=== PATIENT | male | born 1955 | race Caucasian/White ===

== ENCOUNTER 2017-08-15 17:08 | Emergency (ER) | payer MEDICARE ==
[~2017-08-15] VITALS: Ht 182.9 cm; Wt 68.0 kg
[~2017-08-15 17:08] MED LIST: CEPH500C PO; ERGO400C PO; HYDR-3583 PO; MAGNESIUM PO; METO50TA7; MULT-608 PO; POTA99TA7 PO; SULF1TAB38 PO
--- OUTSIDE RECORDS SUMMARY | 2017-08-15 17:13 | XMS REPORT | Clinical Summary ---
Author Author [facility] Address Unknown Phone Unavailable Care Team Providers Care Die Developer Name Role Phone PCP Unavailable Source Comments Some departments are not documenting in the electronic medical record. If you do not see the information that you expected, contact Release of Information in the Health Information Management department at [phone] for further assistance in locating additional records.[facility] Allergies No Known Allergies Current Medications Prescription Sig. Disp. Refills Start End Date Status Date fexofenadine-pseudoephedr Take 1 Tab by mouth twice Active ine (SATISH-D 12 HOUR) daily. 60-120 mg tablet acetaminophen (TYLENOL) Take 500 mg by mouth Active 500 mg tablet every 6 hours as needed for Pain. amLODIPine (NORVASC) 5 mg Take 5 mg by mouth daily. Active tablet trimethoprim/sulfamethoxa Take 1 Tab by mouth twice 60 Tab 0 12/11/19 Active zole (BACTRIM DS) 160/800 daily. 16 mg tablet Active Problems Problem Noted Date Malignant neoplasm of urinary bladder (HCC) 07/31/2015 Urethral bleeding 07/31/2015 Chronic intractable headache 07/31/2015 Family History Medical History Relation Name Comments Cancer Father Arthritis-osteo Mother Arthritis-rheumatoid Mother Diabetes Mother Relation Name Status Comments Father Mother Social History Tobacco Use Types Packs/Day Years Used Date Current Every Day Smoker 2 30.0 Tobacco Cessation: Ready to Quit: Yes Alcohol Use Drinks/Week oz/Week Comments No Sex Assigned at Date Recorded Not on file Last Filed Vital Signs Vital Sign Reading Time Taken Blood Pressure 155/97 12/11/2015 11:27 AM CDT Pulse 90 12/11/2015 11:27 AM CDT Temperature 36.3 C (97.3 F) 12/11/2015 11:27 AM CDT Respiratory Rate 18 12/11/2015 11:27 AM CDT Oxygen Saturation 100% 10/26/2007 1:15 PM CDT Inhaled Oxygen - - Concentration Weight 70.1 kg (154 lb 9.6 oz) 12/11/2015 11:27 AM CDT Height 179.1 cm (5' 10.51") 12/11/2015 11:27 AM CDT Body Mass Index 21.86 12/11/2015 11:27 AM CDT Plan of Treatment Health Maintenance Due Date Last Done Comments HEPATITIS C SCREENING 1957 PHYSICAL (COMPREHENSIVE) 1964 EXAM PERTUSSIS VACCINE 1968 TETANUS VACCINE 1974 COLORECTAL CANCER 10/18/2007 SCREENING INFLUENZA VACCINE 03/10/2017 Results Not on filefrom Last 3 Months
--- OUTSIDE RECORDS SUMMARY | 2017-08-15 17:13 | XMS REPORT | Continuity of Care Document ---
Author Author [facility] Organization [facility] Address Unknown Phone Unavailable Allergies Active Description Code Type Severity Reaction Onset Reported/Identified Relationship to Patient Clinical Status Yes NKANo Known Allergies NKA Miscellaneous Allergy Unknown N/A 02/17/2007 Yes No Known Drug Allergies [id number] Drug Allergy Unknown N/A 03/06/2008 Medications There is no data. Problems Date Dx Coded Attending Type Code Diagnosis Diagnosed By 12/06/2014 ROXANNE ROYAL DO M Ot 188.9 12/06/2014 ALLEN ROYAL DOE M Ot 276.2 12/06/2014 LELE COLE ROXANNE M Ot 477.0 12/06/2014 LELE COLE ROXANNE M Ot 585.4 01/06/2015 LELE DO, ROXANNE M Ot 188.9 01/06/2015 [facility] DO, ROXANNE M Ot 276.2 01/06/2015 LELE DO, ROXANNE M Ot 477.0 01/06/2015 LELE DO ROXANNE M Ot 585.4 08/02/2015 LELE DO, ROXANNE M Ot C67.9 08/02/2015 [facility] DO ROXANNE M Ot E87.2 08/02/2015 [facility] DO ROXANNE M Ot I12.9 08/02/2015 LELE COLE ROXANNE M Ot N18.3 08/30/2015 MONY DUNCAN MD Ot C67.9 08/30/2015 PERLA MACK, MONY Flores Ot N36.8 08/30/2015 MONY DUNCAN MD Ot R51 12/19/2016 Ot 564.00 UNSPEC CONSTIPATION 12/19/2016 Ot 789.00 ABDOMINAL PAIN, UNSPECIFIED SITE Procedures There is no data. Results There is no data. Encounters ACCT No. Visit Date/Time Discharge Status Pt. Type Provider Facility Loc./Unit Complaint [id number] 08/07/2015 14:48:00 08/07/2015 23:59:59 CLS Outpatient MONY DUNCAN MD [facility] RAD [id number] 07/09/2015 14:40:00 07/09/2015 23:59:59 CLS Outpatient ROXANNE ROYAL DO [facility] LAB [id number] 11/30/2014 13:14:00 11/30/2014 23:59:59 CLS Outpatient ROXANNE ROYAL DO [facility] LAB [id number] 05/24/2014 14:28:00 05/24/2014 23:59:59 CLS Outpatient [id number] 11/29/2013 14:24:00 11/29/2013 23:59:59 CLS Outpatient [id number] 02/11/2013 11:42:00 02/11/2013 23:59:59 CLS Outpatient [id number] 02/11/2013 12:18:00 02/11/2013 14:40:00 DIS Emergency [id number] 11/06/2011 08:04:00 Document Registration
[2017-08-15 17:36] LABS: BASOPHILS % (AUTO) 0 % (0-10); EOSINOPHILS % (AUTO) 0 % (0-10); HEMATOCRIT 39 % (40-54); HEMOGLOBIN 14.3 G/DL (13.3-17.7); LYMPHOCYTES # (AUTO) 0.7 X 10^3 (1.0-4.0); LYMPHOCYTES % (AUTO) 6 % (12-44); MEAN CORPUSCULAR HEMOGLOBIN 32 PG (25-34); MEAN CORPUSCULAR HGB CONC 37 G/DL (32-36); MEAN CORPUSCULAR VOLUME 86 FL (80-99); MEAN PLATELET VOLUME 8.7 FL (7.4-10.4); MONOCYTES # (AUTO) 1.4 X 10^3 (0.0-1.0); MONOCYTES % (AUTO) 12 % (0-12); NEUTROPHILS # (AUTO) 9.7 X 10^3 (1.8-7.8); NEUTROPHILS % (AUTO) 82 % (42-75); PLATELET COUNT 247 10^3/uL (130-400); RED BLOOD COUNT 4.46 10^6/uL (4.35-5.85); RED CELL DISTRIBUTION WIDTH 14.1 % (10.0-14.5); WHITE BLOOD COUNT 11.8 10^3/uL (4.3-11.0)
--- NOTE | 2017-08-15 17:48 | Diagnostic Imaging Report ---
EXAMINATION: Single view of the chest. INDICATION: Shortness of breath. COMPARISON: CT of the chest from 02/11/2013. FINDINGS: There are advanced background features of severe emphysema. The lungs are hyperinflated. There is some persistent linear regions of density at the right lung base which were also present on the 2013 examination and are most suggestive of scarring. This has also been present dating back to a prior 2011 CT abdomen. Lungs otherwise demonstrate no new opacities. There is no evidence to suggest failure. The pulmonary arteries are mildly prominent which may reflect pulmonary arterial hypertension. There is no significant effusion. There is no pneumothorax. IMPRESSION: Linear densities at right lung base are favored to be reflective of long-standing scar. There are severe features of background emphysema. Pulmonary artery is prominent suggesting pulmonary arterial hypertension but there is no radiographic evidence of failure or of an acute cardiopulmonary process. Dictated by: Dictated on workstation # [id number]
[2017-08-15 17:58] LABS: ALANINE AMINOTRANSFERASE 88 U/L (0-55); ALKALINE PHOSPHATASE 115 U/L (40-136); BILIRUBIN,TOTAL 0.3 MG/DL (0.1-1.0); BUN/CREATININE RATIO 21; CALCIUM 9.1 MG/DL (8.5-10.1); CARBON DIOXIDE 10 MMOL/L (21-32); CHLORIDE 101 MMOL/L (98-107); CREATININE SERUM 3.28 MG/DL (0.60-1.30); GFR ESTIMATED 19; GLUCOSE 133 MG/DL (70-105); POTASSIUM 4.4 MMOL/L (3.6-5.0); SODIUM 126 MMOL/L (135-145); TOTAL PROTEIN 7.8 GM/DL (6.4-8.2)
[2017-08-15] MEDS ORDERED: methylPREDNISolone 125 MG (Solu-MEDROL) VIAL IV STA (18:16)
[2017-08-15] MEDS ORDERED: NS IV 1000 ML 1,000 ML IV ONE (18:16)
[2017-08-15 18:41] LABS: INR 1.1 (0.8-1.4); PROTHROMBIN TIME PATIENT 13.9 SEC (12.2-14.7)
--- NOTE | 2017-08-15 18:43 | ED Respiratory ---
General Chief Complaint: Respiratory Problems Stated Complaint: SOA Nursing Triage Note: pt reports soa x 2 weeks with cough/congestion. Source: patient History of Present Illness Time seen by provider: 18:00 Initial Comments C/O SHORTNESS OF BREATH X 1-2 WEEKS, GRADUALLY GETTING WORSE C/O MINIMALLY PRODUCTIVE COUGH--SPUTUM UNKNOWN COLOR CHEST HURTS TO COUGH OR MOVE--LEFT > RIGHT STATES "MY LUNGS HURT WHEN I CAN'T BREATHE" NO FEVER/SWEATS/CHILLS NO SWELLING IN LEGS/ FEET OR PAIN IN CALVES OCCASIONAL PALPITATIONS--HEART BEATING FAST OCCASIONAL NAUSEA WHEN HE IS COUGHING HARD. NO VOMITING HAS HAD DECREASED APPETITE, BUT HAS BEEN DRINKING FLUIDS HAS NOT SOUGHT CARE UNTIL TODAY SYMPTOMS NO DIFFERENT TODAY HAS NOT TAKEN ANYTHING FOR SYMPTOMS PT CONTINUES TO SMOKE 2 PPD DENIES HISTORY OF RESPIRATORY PROBLEMS OR DX OF COPD/EMPHYSEMA/ASTHMA HAS NOT BEEN PRESCRIBED INHALERS/ NEBULIZERS, ETC HAS NEVER SEEN HAIR TINTER FOR ANY REASON PT STATES HE DOES NOT TAKE MEDICATION FOR ANYTHING PCP: DR SANTOS Allergies and Home Medications Allergies Coded Allergies: No Known Allergies (Verified Allergy, Unknown, 02/17/07) No Known Drug Allergies (Verified Allergy, Unknown, 03/06/08) Home Medications Albuterol Sulfate 1 Puff Puff, 2 PUFF IH Q4H, #1 USE WITH SPACER AT ALL TIMES Prescribed by: HARPER COVARRUBIAS on 08/15/171942 Benzonatate 100 Mg Capsule, 1-2 TAB PO TID, #30 Prescribed by: HARPER COVARRUBIAS on 08/15/171942 Cefdinir 300 Mg Capsule, 300 MG PO BID, #20 Prescribed by: HARPER COVARRUBIAS on 08/15/171942 Guaifenesin/Dextromethorphan 1 Each Tbmp.12hr, 1 EACH PO BID for 10 Days, #20 Prescribed by: HARPER COVARRUBIAS on 08/15/171942 Methylprednisolone 4 Mg Tab.ds.pk, 4 MG PO UD, #1 Prescribed by: HARPER COVARRUBIAS on 08/15/171942 Constitutional: see HPI, No chills, No diaphoresis, No dizziness, No fever, malaise, weakness, other (DECREASED APPETITE) EENTM: no symptoms reported Respiratory: see HPI, cough, No hemoptysis, No orthopnea, phlegm, short of breath, No wheezing Cardiovascular: see HPI, chest pain, No edema, palpitations, No syncope, No vascular heart diseas Gastrointestinal: see HPI, No abdominal pain, No loss of appetite, nausea, No vomiting Genitourinary: no symptoms reported (PT HAS UROSTOMY) Musculoskeletal: no symptoms reported, No back pain Skin: no symptoms reported Psychiatric/Neurological: No Symptoms Reported, Denies Headache Hematologic/Lymphatic: No Symptoms Reported Immunological/Allergic: no symptoms reported Past Rbuzyrf-Cnbwch-Eizhep Hx Patient Social History Alcohol Use: Occasionally Uses (HISTORY OF MODERATE/HEAVY USE, NOW ONLY "OCCASIONALLY" DRINKS) Recreational Drug Use: No Smoking Status: Current Everyday Smoker (2 PPD) Type Used: Cigarettes Recent Foreign Travel: No Contact w/Someone Who Travel: No Recent Infectious Disease Expo: No Recent Hopitalizations: Yes Physical Abuse: No Sexual Abuse: No Mistreated: No Fear: No Immunizations Up To Date Date of Pneumonia Vaccine: Feb 07, 2010 Surgeries History of Surgeries: Yes ( BASAL CELL CA REMOVED; RIGHT CHEST WALL RESECTION FOR OSTEOMYELITIS; 8 BLADDER SURGERIES FOR CANCER; MULTIPLE COLON SURGERIES/ RESECTIONS/ENTEROSTOMIES; COLOSTOMIES AND TAKEDOWNS; CURRENTLY WITH UROSTOMY; RIGHT NEPHROSTOMY TUBE FOR OBSTRUCTION--REMOVED. LEFT NEPHRECTOMY --"DAMAGED" ) Surgeries: Abdominal, Bladder Surgery, Bowel Surgery, Gallbladder, Nephrectomy , Prostatectomy, Renal, Urinary Diversion Respiratory History of Respiratory Disorde: Yes (ARDS ) Cardiovascular History of Cardiac Disorders: Yes Neurological History of Neurological Disord: No Reproductive System Sexually Transmitted Disease: No Genitourinary History of Genitourinary Disor: Yes (CHRONIC RENAL FAILURE/INSUFFICIENCY--NO DIALYSIS; BLADDER AND PROSTATE CANCER; HAS NOT SEEN DEGREASER IN YEARS. DOES NOT KNOW HIS BASELINE CREATININE LEVEL; LEFT NEPHRECTOMY; RIGHT UROSTOMY / REMOVAL FOR OBSTRUCTION) Genitourinary Disorders: Renal Failure Gastrointestinal History of Gastrointestinal Di: Yes (EXTENSIVE ABDOMINAL SURGERIES--FOR CA, BOWEL RESECTIONS, OSTOMIES, TAKEDOWNS--CURRENTLY ONLY WITH UROSTOMY OF ; RADIATION COLITIS) Gastrointestinal Disorders: Colitis, Obstructive Bowel Musculoskeletal History of Musculoskeletal Dis: Yes (OSTEOMYELITIS) Endocrine History of Endocrine Disorders: No HEENT History of HEENT Disorders: No Cancer History of Cancer: Yes (S/O SURGERY, CHEMO, RADIATION) Cancer: Bladder, Prostate, Skin Did You Recieve Any Treatments: Yes (MULTIPLE SURGERIES ON BLADDER AND PROSTATE --PROSTATECTOMY/CYSTECTOMY/UROSTOMY, PLUS CHEMO AND RADIATION-COMPLETED TREATMENT 15 YEARS AGO, PER PT ON 08/15/17-HAS NOT SEEN ONCOLOGIST IN YEARS; SKIN CANCER REMOVED WITH SURGICAL EXCISION) Type of Tx Receive: Chemotherapy, Radiation, Surgical Intervention Psychosocial History of Psychiatric Problem: No Suicide Risk Score: 0 Integumentary History of Skin or Integumenta: Yes (OSTEOMYELITIS OF RIBS/CHEST WALL, SKIN CANCER) Blood Transfusions History of Blood Disorders: No Physical Exam Vital Signs Vital Sign - Last 12Hours 08/15/17 08/15/17 17:34 18:00 Temp 97.6 Pulse 108 Resp 20 B/P (MAP) 124/72 (89) Pulse Ox 93 O2 Delivery Room Air Capillary Refill : Less Than 3 Seconds General Appearance: WD/WN, no apparent distress HEENT: PERRL/EOMI Neck: normal inspection Respiratory: normal breath sounds, no respiratory distress, no accessory muscle use Cardiovascular: normal peripheral pulses, regular rate, rhythm, no edema, no JVD, no murmur Gastrointestinal: normal bowel sounds, non tender, soft Extremities: normal inspection, no pedal edema, no calf tenderness, normal capillary refill Neurologic/Psychiatric: campus wellness coordinator II-XII nml as tested, no motor/sensory deficits, alert, oriented x 3, other (FLAT AFFECT) Skin: normal color, warm/dry Focused Exam Evaluation Lactate Level Laboratory Tests 08/15/17 17:25: Lactic Acid Level 0.99 Lactic Acid Level Laboratory Tests Test 08/15/17 17:25 Lactic Acid Level 0.99 MMOL/L (0.50-2.00) Progress/Results/Core Measures Suspected Sepsis Recent Fever Within 48 Hours: No Infection Criteria Present: Suspected New Infection New/Unexplained Altered Menta: No Sepsis Screen: No Definite Risk Sepsis Diagnosis: SIRS Temperature:97.6 Pulse: 108 Respiratory Rate: 20 Laboratory Tests 08/15/17 17:25: White Blood Count 11.8H Blood Pressure 124 /72 Mean: 89 Laboratory Tests 08/15/17 17:25: Lactic Acid Level 0.99 Laboratory Tests 08/15/17 17:25: Creatinine 3.28H, INR Comment 1.1, Platelet Count 247, Total Bilirubin 0.3 Results/Orders Lab Results Laboratory Tests Test 08/15/17 17:25 1/6/18 19:13 Range/Units White Blood Count 11.8 H 4.3-11.0 10^3/uL Red Blood Count 4.46 4.35-5.85 10^6/uL Hemoglobin 14.3 13.3-17.7 G/DL Hematocrit 39 L 40-54 % Mean Corpuscular Volume 86 80-99 FL Mean Corpuscular Hemoglobin 32 25-34 PG Mean Corpuscular Hemoglobin Concent 37 H 32-36 G/DL Red Cell Distribution Width 14.1 10.0-14.5 % Platelet Count 247 130-400 10^3/uL Mean Platelet Volume 8.7 7.4-10.4 FL Neutrophils (%) (Auto) 82 H 42-75 % Lymphocytes (%) (Auto) 6 L 12-44 % Monocytes (%) (Auto) 12 0-12 % Eosinophils (%) (Auto) 0 0-10 % Basophils (%) (Auto) 0 0-10 % Neutrophils # (Auto) 9.7 H 1.8-7.8 X 10^3 Lymphocytes # (Auto) 0.7 L 1.0-4.0 X 10^3 Monocytes # (Auto) 1.4 H 0.0-1.0 X 10^3 Eosinophils # (Auto) 0.0 0.0-0.3 10^3/uL Basophils # (Auto) 0.0 0.0-0.1 10^3/uL Prothrombin Time 13.9 12.2-14.7 SEC INR Comment 1.1 0.8-1.4 Activated Partial Thromboplast Time 36 H 24-35 SEC Sodium Level 126 L 135-145 MMOL/L Potassium Level 4.4 3.6-5.0 MMOL/L Chloride Level 101 98-107 MMOL/L Carbon Dioxide Level 10 L 21-32 MMOL/L Anion Gap 15 H 5-14 MMOL/L Blood Urea Nitrogen 68 H 7-18 MG/DL Creatinine 3.28 H 0.60-1.30 MG/DL Estimat Glomerular Filtration Rate 19 BUN/Creatinine Ratio 21 Glucose Level 133 H 70-105 MG/DL Lactic Acid Level 0.99 0.50-2.00 MMOL/L Calcium Level 9.1 8.5-10.1 MG/DL Magnesium Level 1.5 L 1.8-2.4 MG/DL Total Bilirubin 0.3 0.1-1.0 MG/DL Aspartate Amino Transf (AST/SGOT) 49 H 5-34 U/L Alanine Aminotransferase (ALT/SGPT) 88 H 0-55 U/L Alkaline Phosphatase 115 40-136 U/L Troponin I < 0.30 <0.30 NG/ML B-Type Natriuretic Peptide < 10.0 <100.0 PG/ML Total Protein 7.8 6.4-8.2 GM/DL Albumin 4.0 3.2-4.5 GM/DL Urine Color YELLOW Urine Clarity CLEAR Urine pH 8 5-9 Urine Specific [place] 1.010 L 1.016-1.022 Urine Protein 3+ H NEGATIVE Urine Glucose (UA) NEGATIVE NEGATIVE Urine Ketones NEGATIVE NEGATIVE Urine Nitrite POSITIVE H NEGATIVE Urine Bilirubin NEGATIVE NEGATIVE Urine Urobilinogen NORMAL NORMAL MG/DL Urine Leukocyte Esterase 3+ H NEGATIVE Urine RBC (Auto) 4+ H NEGATIVE Urine RBC 2-5 H /HPF Urine WBC 10-25 H /HPF Urine Crystals PRESENT H /LPF Urine Triple Phosphate Crystals MODERATE H /LPF Urine Bacteria FEW H /HPF Urine Casts NONE /LPF Urine Mucus NEGATIVE /LPF Urine Culture Indicated YES Micro Results Microbiology 08/15/17 Influenza Types A,B Antigen (MIGUEL) - Final, Complete My Orders Orders - HARPER COVARRUBIAS DO BNP (08/15/17 18:13) Lactic Acid Analyzer (08/15/17 18:13) Magnesium (08/15/17 18:13) Protime With Inr (08/15/17 18:13) Partial Thromboplastin Time (08/15/17 18:13) Blood Culture (08/15/17 18:13) Influenza A And B Antigens (08/15/17 18:13) Saline Lock/Iv-Start (08/15/17 18:16) Ns Iv 1000 Ml (Sodium Chloride 0.9%) (08/15/17 18:16) Methylprednisolone Sod Succ (Solu-Medrol (08/15/17 18:16) Ct Chest Wo (08/15/17 18:16) Albuterol/Ipra Inhalation Soln (Duoneb I (08/15/17 19:15) Dexamethasone Injection (Decadron Inject (08/15/17 19:15) Rt Request For Service (08/15/17 19:07) Ceftriaxone Injection (Rocephin Injectio (08/15/17 19:15) Svn Sm Volume Nebulizer Rt-Rfs (08/15/17 19:07) Magnesium Oxide Tablet (Mag Ox Tablet) (08/15/17 19:45) Medications Given in ED Current Medications Medications Dose Ordered Sig/Kp Route Start Time Stop Time Status Last Admin Dose Admin Albuterol/ Ipratropium 3 ml ONCE ONCE INH 08/15/17 19:15 08/15/17 19:16 DC 08/15/17 19:48 3 ML Ceftriaxone Sodium 1000 mg/ Sodium Chloride 50 ml @ 100 mls/hr ONCE ONCE IV 08/15/17 19:15 08/15/17 19:44 DC 08/15/17 19:41 100 MLS/HR Dexamethasone Sodium Phosphate 20 mg ONCE ONCE IH 08/15/17 19:15 08/15/17 19:16 DC 08/15/17 19:48 20 MG Magnesium Oxide 800 mg ONCE ONCE PO 08/15/17 19:45 08/15/17 19:46 DC 08/15/17 19:42 800 MG Sodium Chloride 1,000 ml @ 0 mls/hr Q0M ONCE IV 08/15/17 18:16 08/15/17 18:17 DC 08/15/17 18:22 0 MLS/HR Vital Signs/I&O Vital Sign - Last 12Hours 08/15/17 08/15/17 08/15/17 08/15/17 17:34 18:00 18:30 19:00 Temp 97.6 Pulse 108 94 96 95 Resp 20 18 18 18 B/P (MAP) 124/72 (89) 103/74 114/72 123/85 Pulse Ox 93 97 97 97 O2 Delivery Room Air Room Air Room Air 08/15/17 08/15/17 08/15/17 08/15/17 19:30 19:49 20:00 20:10 Pulse 91 90 92 Resp 18 18 18 B/P (MAP) 116/79 116/77 Pulse Ox 96 100 97 97 O2 Delivery Room Air Room Air Room Air Room Air Intake and Output 08/16/17 00:00 Intake Total 1050 ml Balance 1050 ml Capillary Refill : Less Than 3 Seconds Blood Pressure Mean: 89 Progress Note : Progress Note STRONGLY ADVISED THAT PT BE ADMITTED FOR FURTHER TREATMENT AND EVALUATION AND HE ADAMANTLY AND REPEATEDLY REFUSES, STATING HE "HAS HIS DOGS TO TAKE CARE OF" --DAUGHTER IS HERE WITH PT, BUT DOES NOT ENCOURAGE PT TO STAY, VOLUNTEER TO TAKE CARE OF HIS DOGS, ETC. AMA PAPERS SIGNED STRONGLY ADVISED PT TO RETURN IF SYMPTOMS WORSENED AND TO FOLLOW UP WITH HIS DR ON THURSDAY FOR FURTHER CARE NO COUGH OR EVIDENCE OF DYSPNEA AT ANY TIME DURING ER STAY ECG Initial ECG Impression Time: 17:19 Initial ECG Rate: 101 Initial ECG Rhythm: Normal Sinus Initial ECG Comparisson: No Previous ECG Available Diagnostic Imaging Comments CXR--LIKELY SCARRING IN RLL, EMPHYSEMA, NO ACUTE PROCESS--PER RADIOLOGIST REPORT @ 1800 CT CHEST--NO ACUTE PROCESS, SCARRING IN RLL, BULLOUS EMPHYSEMA, STABLE/ UNCHANGED NODULE IN LLL, NO ACUTE PROCESS, PER RADIOLOGIST REPORT @ 1900 Reviewed: Reviewed by Me Departure Impression Impression: Primary Impression: Bronchitis Additional Impressions: Emphysema lung Very heavy cigarette smoker (40 or more per day) UTI (urinary tract infection) HX OF BLADDER AND PROSTATE CANCER Hypomagnesemia Acute on chronic renal failure Dehydration Hyponatremia Disposition: AGAINST MEDICAL ADVICE Condition: Against Medical Advice Departure-Patient Inst. Referrals: PANFILO SANTOS DO (PCP/Family) Primary Care Physician Patient Instructions: Acute Bronchitis, Adult (DC), Acute Kidney Failure (DC), COPD Including Emphysema (DC), Chronic Kidney Disease (DC), Hyponatremia (DC), Low Magnesium Level (DC), Quitting Smoking for Older Adults, SMOKING CESSATION, Smoking: Not Just Harmful to Your Lungs and Heart, Urinary Tract Infection, Adult (DC) Add. Discharge Instructions: INCREASE YOUR FLUID INTAKE NO SMOKING FOLLOW UP WITH DR. SANTOS ON THURSDAY FOR FURTHER CARE RETURN TO ER IF SYMPTOMS WORSEN All discharge instructions reviewed with patient and/or family. Voiced understanding. Scripts Guaifenesin/Dextromethorphan (Mucinex Dm ER 1,200-60 mg Tab) 1 Each Tbmp.12hr 1 EACH PO BID for 10 Days, #20 EA Prov: HARPER COVARRUBIAS DO 08/15/17 Benzonatate (Tessalon Perle) 100 Mg Capsule 1-2 TAB PO TID for Cough, #30 CAP Prov: HARPER COVARRUBIAS K 08/15/17 Albuterol Sulfate (PROAIR HFA) 1 Puff Puff 2 PUFF IH Q4H for BREATHING, #1 GM USE WITH SPACER AT ALL TIMES Prov: HARPER COVARRUBIAS DO 08/15/17 Methylprednisolone (Medrol) 4 Mg Tab.ds.pk 4 MG PO UD, #1 PKG Prov: HARPER COVARRUBIAS DO 08/15/17 Cefdinir (Cefdinir) 300 Mg Capsule 300 MG PO BID for FOR INFECTION, #20 CAP Prov: HARPER COVARRUBIAS DO 08/15/17 HARPER COVARRUBIAS DO Aug 15, 2017 18:43
--- NOTE | 2017-08-15 18:53 | Diagnostic Imaging Report ---
PROCEDURE: CT chest without contrast. TECHNIQUE: Multiple contiguous axial images were obtained through the chest without the use of intravenous contrast. INDICATION: Chest pain with shortness of breath. COMPARISON: Chest radiograph from the same day and prior CT of the chest from 02/11/2013. FINDINGS: Nodular densities within the right lower lobe demonstrate no appreciable interval change when compared to the 2013 examination and are most suggestive of scar. There are severe features of emphysema present with pulmonary air trapping. There are bulla at the lung apices. There is no pneumothorax. No focal infiltrate is demonstrated. There is no new pulmonary nodule or mass. A tiny nodule within the left lower lobe on image 56 is also stable. There are no pathologically enlarged mediastinal lymph nodes evident. There are atherosclerotic calcifications within the aorta. Heart size is normal. There is no pericardial effusion. The visualized portion of the upper abdomen demonstrates no acute process. There are no suspicious lytic or blastic lesions evident within the thoracic spine. IMPRESSION: 1. Severe features of pulmonary emphysema with stable nodular regions of soft tissue density along the pleural surface within the right lower lobe most compatible with scar. There is also stable small nodule within the left lower lobe. No new pulmonary nodule or mass is demonstrated. There is no focal infiltrate, effusion or pneumothorax. No pathologically enlarged mediastinal lymph nodes are evident. 2. Atherosclerosis and coronary artery disease. Dictated by: Dictated on workstation # [id number]
[2017-08-15] MEDS ORDERED: RT-ALBUTEROL/IPRATROPIUM 3 ML (DUONEB) VIAL INH ONE (19:15)
[2017-08-15] MEDS ORDERED: cefTRIAXone INJECTION 1,000 MG in NS (IVPB) 50 ML IV ONE (19:15)
[2017-08-15] MEDS ORDERED: DEXAMETHASONE 4 MG/ML SDV (DECADRON) IH ONE (19:15)
[2017-08-15 19:19] LABS: BILIRUBIN,URINE NEGATIVE (NEGATIVE); CLARITY,URINE CLEAR; COLOR,URINE YELLOW; GLUCOSE, URINE (UA) NEGATIVE (NEGATIVE); KETONES,URINE NEGATIVE (NEGATIVE); LEUKOCYTE ESTERASE ,URINE 3+ (NEGATIVE); NITRITE,URINE POSITIVE (NEGATIVE); PH,URINE 8 (5-9); PROTEIN,URINE 3+ (NEGATIVE); UROBILINOGEN,URINE NORMAL (NORMAL)
[2017-08-15 19:27] LABS: BACTERIA,URINE FEW /HPF; TRIPLE PHOSPHATE CRYSTAL,UR MODERATE /LPF
[2017-08-15] MEDS ORDERED: BENZ-13 PO (19:43)
[2017-08-15] MEDS ORDERED: GUAI1TBM19 PO (19:43)
[2017-08-15] MEDS ORDERED: RT-ALBUINH IH (19:43)
[2017-08-15] MEDS ORDERED: CEFD300C3 PO (19:43)
[2017-08-15] MEDS ORDERED: METH4TAB PO (19:43)
[2017-08-15] MEDS ORDERED: MAGNESIUM OXIDE (MAG-OX)400 MG TAB PO ONE (19:45)
[2017-08-15 20:10] VITALS: BP 115/80
== END 2017-08-15 20:10 | disposition left against medical advice (07) ==
LOC: EDUNIT# 17:08 → ER 17:09
DX: J43.9 Emphysema, unspecified (principal); N39.0 Urinary tract infection, site not specified; E83.42 Hypomagnesemia; N17.9 Acute kidney failure, unspecified; N18.9 Chronic kidney disease, unspecified; E87.1 Hypo-osmolality and hyponatremia; F17.210 Nicotine dependence, cigarettes, uncomplicated; Z85.46 Personal history of malignant neoplasm of prostate; Z85.51 Personal history of malignant neoplasm of bladder; Z85.828 Personal history of other malignant neoplasm of skin; Z92.21 Personal history of antineoplastic chemotherapy; Z92.3 Personal history of irradiation; Z90.5 Acquired absence of kidney; Z90.79 Acquired absence of other genital organ(s); Z87.09 Personal history of other diseases of the respiratory system
CPT/HCPCS: 36415; 71045; 71250; 80053; 81000; 83605; 83735; 83880; 84484; 85025; 85610; 85730; 87040; 87088; 87804; 93005; 94640

== ENCOUNTER → 2018-05-12 | Outpatient (CLI) | payer MEDICARE, OTHER ==
[~2018-05-12] MED LIST changes: +BENZ100C18 PO; +CEFD300C3 PO; +GUAI1TBM19 PO; +METH4TAB PO; +RT-ALBUINH IH; +RT-ALBUTEROL SULF 2.5 MG/3 ML PRE-MIX VIAL INH ONE
== END ==
LOC: RT 12:40
PROVIDERS: ATTEND Internal Medicine Infectious Disease
DX: Z02.71 Encounter for disability determination (principal)
CPT/HCPCS: 94060; 94729

== ENCOUNTER 2019-06-20 23:37 | Emergency (ER) | payer MEDICARE, OTHER ==
[~2019-06-20] VITALS: Ht 182.8 cm; Wt 68.2 kg
[~2019-06-20 23:37] MED LIST changes: -RT-ALBUTEROL SULF 2.5 MG/3 ML PRE-MIX VIAL INH ONE
[2019-06-20] MEDS ORDERED: NS IV 1000 ML 1,000 ML IV SCH ×2 (23:47)
--- NOTE | 2019-06-20 23:54 | ED Neurological Problem ---
General Stated Complaint: DIZZY,CONFUSSION Source: patient, EMS Exam Limitations: no limitations History of Present Illness Date Seen by Provider: Jun 20, 2019 Time Seen by Provider: 23:30 Initial Comments Patient presents to ER by EMS from [facility] [address] with chief complaint that for 30 minutes staff watched him sitting in the [facility] in [place] having try to get up he would get dizzy. He did not pass out. He denies any chest pain or history of coronary disease. EMS noted his blood sugar was 62 on arrival the gave him 25 g of oral glucose and on recheck his blood sugar was 140. Patient's mentation was clear and he was oriented per EMS. He has no history of vasculopathy, stroke, heart attack. He does have a history of colon cancer status post resection, radiation and colostomy. He states he is in remission and usually follows with Dr. Fishman but he is sick of doctor so he does not follow any more. He does not have a history of diabetes. He does not have a history of hypoglycemia. He says he had a cough is productive but he smokes 2 packs of cigarettes per day since today he was 14 years old and has COPD. He does not use breathing treatments. He does admit to mild shortness of breath and EMS reports his oxygen saturation was around 98% with a good plethora wave. He denies any fevers, chills, nausea, diarrhea. He had a last bowel movement this morning. Allergies and Home Medications Allergies Coded Allergies: NKANo Known Allergies (Verified Allergy, Unknown, 02/17/07) No Known Drug Allergies (Verified , 03/06/08) Home Medications Albuterol Sulfate 1 Puff Puff, 2 PUFF IH Q4H USE WITH SPACER AT ALL TIMES Prescribed by: HARPER COVARRUBIAS on 08/15/171942 Azithromycin 250 Mg Tablet, 250 MG PO DAILY Prescribed by: RUBY CRUZ on 06/21/19207 Benzonatate 100 Mg Capsule, 1-2 TAB PO TID Prescribed by: HARPER COVARRUBIAS on 08/15/171942 Cefdinir 300 Mg Capsule, 300 MG PO BID Prescribed by: HARPER COVARRUBIAS on 08/15/171942 Cefdinir 300 Mg Capsule, 300 MG PO DAILY Prescribed by: RUBY CRUZ on 06/21/19207 Guaifenesin/Dextromethorphan 1 Each Tbmp.12hr, 1 EACH PO BID Prescribed by: HARPER COVARRUBIAS on 08/15/171942 Methylprednisolone 4 Mg Tab.ds.pk, 4 MG PO UD Prescribed by: HARPER COVARRUBIAS on 08/15/171942 Patient Home Medication List Home Medication List Reviewed: Yes Review of Systems Review of Systems Constitutional: No chills, No fever Eyes: Denies Blindness, Denies Blurred Vision, Denies Drainage Ears, Nose, Mouth, Throat: denies ear pain, denies ear discharge Respiratory: cough; No phlegm, No short of breath, No wheezing Cardiovascular: No chest pain, No edema Gastrointestinal: No abdominal pain, No constipation, No diarrhea Genitourinary: No discharge, No dysuria Musculoskeletal: No back pain, No joint pain Skin: No pruritus, No rash Past Voufqky-Ieqrhj-Kmhadf Hx Patient Social History Alcohol Use: Denies Use Recreational Drug Use: No Smoking Status: Current Everyday Smoker Type Used: Cigarettes (2 ppd) Recent Foreign Travel: No Contact w/Someone Who Travel: No Recent Hopitalizations: Yes Immunizations Up To Date Date of Pneumonia Vaccine: Feb 07, 2010 Past Medical History Surgeries: Yes Abdominal, Bladder Surgery, Bowel Surgery, Gallbladder, Nephrectomy, Prostatectomy, Renal, Urinary Diversion Respiratory: Yes (ARDS ) Cardiac: Yes Neurological: No Sexually Transmitted Disease: No Genitourinary: Yes Renal Failure Gastrointestinal: Yes Colitis, Obstructive Bowel Musculoskeletal: Yes (OSTEOMYELITIS) Endocrine: No HEENT: No Cancer: Yes (S/O SURGERY, CHEMO, RADIATION) Bladder, Prostate, Skin Did You Recieve Any Treatments: Yes What Type of Treatment Did You: Chemotherapy, Radiation, Surgical Intervention Psychosocial: No Integumentary: Yes (OSTEOMYELITIS OF RIBS/CHEST WALL, SKIN CANCER) Blood Disorders: No Physical Exam Vital Signs Vital Signs - First Documented 06/20/19 06/21/19 23:40 02:30 Temp 36.7 Pulse 112 Resp 20 B/P (MAP) 96/80 (85) Pulse Ox 100 O2 Delivery Room Air Capillary Refill : Height, Weight, BMI Height: 6'" Weight: 150lbs. oz. [id number]; BMI Method:Stated General Appearance: WD/WN, no apparent distress HEENT: PERRL/EOMI, normal ENT inspection, pharynx normal Neck: non-tender, full range of motion Respiratory: lungs clear, no respiratory distress, no accessory muscle use, decreased breath sounds Cardiovascular: normal peripheral pulses, regular rate, rhythm Peripheral Pulses: 2+ Radial Pulses (R), 2+ Radial Pulses (L) Gastrointestinal: normal bowel sounds, non tender, soft Extremities: normal range of motion, non-tender, normal capillary refill Neurologic/Psychiatric: alert, normal mood/affect, oriented x 3 Crainal Nerves: normal hearing, normal speech, PERRL Motor/Sensory: no motor deficit, no sensory deficit Skin: normal color, warm/dry Focused Exam Lactate Level 06/20/19 23:40: Lactic Acid Level 1.32 Lactic Acid Level Laboratory Tests Test 06/20/19 23:40 Lactic Acid Level 1.32 MMOL/L (0.50-2.00) Progress/Results/Core Measures Results/Orders Lab Results Laboratory Tests Test 06/20/19 23:40 06/20/19 23:44 06/21/19 00:20 06/21/19 00:40 Range/Units White Blood Count 15.9 H 4.3-11.0 10^3/uL Red Blood Count 4.39 4.35-5.85 10^6/uL Hemoglobin 14.7 13.3-17.7 G/DL Hematocrit 41 40-54 % Mean Corpuscular Volume 94 80-99 FL Mean Corpuscular Hemoglobin 34 25-34 PG Mean Corpuscular Hemoglobin Concent 36 32-36 G/DL Red Cell Distribution Width 16.1 H 10.0-14.5 % Platelet Count 225 130-400 10^3/uL Mean Platelet Volume 9.2 7.4-10.4 FL Neutrophils (%) (Auto) 91 H 42-75 % Lymphocytes (%) (Auto) 5 L 12-44 % Monocytes (%) (Auto) 4 0-12 % Eosinophils (%) (Auto) 0 0-10 % Basophils (%) (Auto) 0 0-10 % Neutrophils # (Auto) 14.5 H 1.8-7.8 X 10^3 Lymphocytes # (Auto) 0.7 L 1.0-4.0 X 10^3 Monocytes # (Auto) 0.6 0.0-1.0 X 10^3 Eosinophils # (Auto) 0.1 0.0-0.3 10^3/uL Basophils # (Auto) 0.0 0.0-0.1 10^3/uL Neutrophils % (Manual) 86 % Lymphocytes % (Manual) 7 % Monocytes % (Manual) 5 % Metamyelocytes % 1 % Reactive Lymphocytes 1 % Prothrombin Time 14.2 12.2-14.7 SEC INR Comment 1.1 0.8-1.4 Activated Partial Thromboplast Time 29 24-35 SEC Sodium Level 126 L 135-145 MMOL/L Potassium Level 5.1 H 3.6-5.0 MMOL/L Chloride Level 104 98-107 MMOL/L Carbon Dioxide Level 7 *L 21-32 MMOL/L Anion Gap 15 H 5-14 MMOL/L Blood Urea Nitrogen 82 H 7-18 MG/DL Creatinine 3.84 H 0.60-1.30 MG/DL Estimat Glomerular Filtration Rate 16 BUN/Creatinine Ratio 21 Glucose Level 190 H 70-105 MG/DL Lactic Acid Level 1.32 0.50-2.00 MMOL/L Calcium Level 8.9 8.5-10.1 MG/DL Corrected Calcium 8.5-10.1 MG/DL Total Bilirubin 0.5 0.1-1.0 MG/DL Aspartate Amino Transf (AST/SGOT) 15 5-34 U/L Alanine Aminotransferase (ALT/SGPT) 27 0-55 U/L Alkaline Phosphatase 95 40-136 U/L Troponin I 0.084 H <0.028 NG/ML Total Protein 7.9 6.4-8.2 GM/DL Albumin 4.7 H 3.2-4.5 GM/DL Glucometer 156 H 70-110 MG/DL Blood Gas Puncture Site RIGHT RADIAL LEFT RADIAL Blood Gas Patient Temperature 37.3 37.3 Arterial Blood pH 7.05 *L 7.06 *L 7.37-7.43 Arterial Blood Partial Pressure CO2 23 L 23 L 35-45 MMHG Arterial Blood Partial Pressure O2 104 H 104 H 79-93 MMHG Arterial Blood HCO3 6 *L 6 *L 23-27 MMOL/L Arterial Blood Total CO2 6.8 L 7.0 L 21.0-31.0 MMOL/L Arterial Blood Oxygen Saturation 97 97 94-100 % Arterial Blood Base Excess -22.3 L -22.0 L -2.5-2.5 MMOL/L Tim Test POSITIVE POSITIVE Blood Gas Ventilator Setting NO NO Blood Gas Inspired Oxygen ROOM AIR ROOM AIR Test 06/21/19 01:34 Range/Units Glucometer 147 H 70-110 MG/DL My Orders Orders - RUBY CRUZ Cbc With Automated Diff (06/20/1947) Comprehensive Metabolic Panel (06/20/1947) Blood Culture (06/20/1947) Sputum Culture (06/20/19:47) Urinalysis (06/20/19) Urine Culture (06/20/19) Protime With Inr (06/20/19) Partial Thromboplastin Time (06/20/1947) Ed Iv/Invasive Line Start (06/20/1947) Ed Iv/Invasive Line Start (06/20/19) Ekg Tracing (06/20/19) Troponin I (06/20/19) Vital Signs Adult Sepsis Patie Q15M (06/20/19:47) O2 (06/20/19:47) Remove Rings In Anticipation O (06/20/19) Lactic Acid Analyzer (06/20/1947) Influenza A And B Antigens (06/20/19:47) Ns Iv 1000 Ml (Sodium Chloride 0.9%) (06/20/19:47) Cefepime Injection (Maxipime Injection) (06/21/19 00:00) Ed Iv/Invasive Line Start (06/20/19:47) Ns Iv 1000 Ml (Sodium Chloride 0.9%) (06/20/19:47) Accucheck Stat ONCE (06/20/19:47) Albuterol/Ipra Inhalation Soln (Duoneb I (06/21/19 00:00) Svn Small Volume Nebulizer (06/20/19 23:54) Chest 1 View, Ap/Pa Only (06/21/19 00:01) Manual Differential (06/20/19 23:40) Arterial Blood Gas (06/21/19 00:23) Arterial Blood Gas (06/21/19 00:43) Ct Abdomen/Pelvis Wo (06/21/19 00:51) Accucheck Stat ONCE (06/21/19 01:22) Azithromycin Injection (Zithromax Inject (06/21/19 01:30) Medications Given in ED Current Medications Medications Dose Ordered Sig/Kp Route Start Time Stop Time Status Last Admin Dose Admin Albuterol/ Ipratropium 3 ml ONCE ONCE INH 06/21/19 00:00 06/21/19 00:01 DC 06/21/19 00:26 3 ML Azithromycin 500 mg/Sodium Chloride 250 ml @ 250 mls/hr ONCE ONCE IV 06/21/19 01:30 06/21/19 02:30 DC 06/21/19 01:32 250 MLS/HR Cefepime HCl 1000 mg/Sterile Water 10 ml @ 200 mls/hr ONCE ONCE IV 06/21/19 00:00 06/21/19 00:02 DC 06/21/19 00:04 200 MLS/HR Vital Signs/I&O 06/20/19 06/21/19 06/21/19 23:40 00:26 02:30 Temp 36.7 Pulse 112 101 Resp 20 18 B/P (MAP) 96/80 (85) 99/71 (85) Pulse Ox 100 100 99 O2 Delivery Room Air Room Air Room Air Progress Progress Note #1: Time: 00:45 Progress Note Patient demonstrates severe metabolic acidosis on ABG. He is alert oriented so we resent a second ABG to confirm this. The bicarbonate come back as 7 on his CMP after the second ABG was sent. He is received 30 mL/kg of fluids. His vital signs are aseptic except for tachycardia 115 but he states that is normal for him to run in the 9 to 120 range. He has willfully declined following with a physician on an outpatient basis putting himself and a defacto state of palliative care. Progress Note #2: Time: 01:21 Progress Note Labs are largely unchanged from August 2017. He is more acidotic today than he was before however he's noted that he stopped taking the bicarbonate as much because it was too much to take. 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 He would prefer to go home. He is feeling much better. We will repeat an Accu-Chek. He has not use cefepime we'll give him some azithromycin and put him out on cefepime and azithromycin for outpatient therapy of potential pneumonia. Progress Note #3: Time: 02:02 Progress Note We have discussed admission to the hospital for IV antibiotics and the patient declined saying he has a dog he needs to go home to. We discussed that his troponins could be trended although he's having no ACS symptoms and denies a history of coronary disease. The patient declined this workup. Plan to attempt outpatient therapy. He has received azithromycin and cefepime. He has received fluids and his heart rate has improved significantly down to around 100. We have discussed the risks, benefits and alternatives to outpatient therapy and he has accepted the risks and noted he will come back if he gets worse. Plan to follow up later this week primary care for recheck. He was also encouraged to start taking his bicarbonate again and follow up with nephrology. Initial ECG Impression Date: Jun 21, 2019 Initial ECG Impression Time: 00:53 Initial ECG Rate: 112 Initial ECG Rhythm: S.Tach Initial ECG Intervals: Normal Initial ECG Impression: Normal, Nonspecific Changes Comment Sinus tachycardia without ST elevation or depression. Diagnostic Imaging Diagonstic Imaging: Xray Plain Films/CT/US/NM/MRI: chest Comments Mild right basilar effusion and possible infiltrate. Increased interstitial markings. Reviewed: Reviewed by Me Diagonstic Imaging: CT (without IV contrast) Plain Films/CT/US/NM/MRI: abdomen, pelvis Comments No relevant change compared to the prior study. Persistent dilatations loop of bowel proximal to multiple surgical anastomoses but no definite evidence for obstruction. Reviewed: [facility] Reviewed by Me Departure Impression Primary Impression: Hypoglycemia Additional Impression: Pneumonia Qualified Codes: J18.1 - Lobar pneumonia, unspecified organism Disposition: 01 HOME, SELF-CARE Condition: Improved Departure-Patient Inst. Decision time for Depature: 02:05 Referrals: PANFILO FISHMAN DO (PCP/Family) Primary Care Physician Patient Instructions: Pneumonia, Adult (DC), Low Blood Sugar in People Without Diabetes Add. Discharge Instructions: Drink plenty of fluids and follow-up with your pinking machine operator this week or next. Follow-up to primary care doctor next week for reevaluation. Return to the ER to begin to have fevers, shortness of breath or worsening symptoms. Take the Omnicef one capsule daily with food for the next week. Take azithromycin 1 tablet daily for the next 4 days. Scripts Cefdinir (Cefdinir) 300 Mg Capsule 300 MG PO DAILY for 7 Days, #7 CAP 0 Refills Prov: RUBY CRUZ 06/21/19 Azithromycin (Azithromycin) 250 Mg Tablet 250 MG PO DAILY, #4 TAB 0 Refills Prov: RUBY CRUZ 06/21/19 RUBY CRUZ Jun 20, 2019 23:54 POS
[2019-06-21] MEDS ORDERED: CEFEPIME INJECTION 1,000 MG in WATER (STERILE) FOR INJECTION 10 ML IV ONE ×2
[2019-06-21] MEDS ORDERED: RT-ALBUTEROL/IPRATROPIUM 3 ML (DUONEB) VIAL INH ONE
[2019-06-21 00:13] LABS: BASOPHILS % (AUTO) 0 % (0-10); EOSINOPHILS # (AUTO) 0.1 10^3/uL (0.0-0.3); EOSINOPHILS % (AUTO) 0 % (0-10); HEMATOCRIT 41 % (40-54); HEMOGLOBIN 14.7 G/DL (13.3-17.7); LYMPHOCYTES # (AUTO) 0.7 X 10^3 (1.0-4.0); LYMPHOCYTES % (AUTO) 5 % (12-44); MEAN CORPUSCULAR HEMOGLOBIN 34 PG (25-34); MEAN CORPUSCULAR HGB CONC 36 G/DL (32-36); MEAN CORPUSCULAR VOLUME 94 FL (80-99); MEAN PLATELET VOLUME 9.2 FL (7.4-10.4); MONOCYTES # (AUTO) 0.6 X 10^3 (0.0-1.0); MONOCYTES % (AUTO) 4 % (0-12); NEUTROPHILS # (AUTO) 14.5 X 10^3 (1.8-7.8); NEUTROPHILS % (AUTO) 91 % (42-75); PLATELET COUNT 225 10^3/uL (130-400); RED CELL DISTRIBUTION WIDTH 16.1 % (10.0-14.5); WHITE BLOOD COUNT 15.9 10^3/uL (4.3-11.0)
[2019-06-21 00:24] LABS: INR 1.1 (0.8-1.4); PROTHROMBIN TIME PATIENT 14.2 SEC (12.2-14.7)
[2019-06-21 00:29] LABS: ABG BASE EXCESS -22.3 MMOL/L (-2.5-2.5); ABG OXYGEN SATURATION 97 % (94-100); ABG PCO2 23 MMHG (35-45); ABG PO2 104 MMHG (79-93); ABG TCO2 6.8 MMOL/L (21.0-31.0); ALLENS TEST POSITIVE; INSPIRED O2 ROOM AIR; PATIENT TEMP 37.3; VENTILATOR NO
[2019-06-21 00:30] LABS: ABG PH 7.05 (7.37-7.43)
[2019-06-21 00:32] LABS: ALANINE AMINOTRANSFERASE 27 U/L (0-55); ALBUMIN 4.7 GM/DL (3.2-4.5); ALKALINE PHOSPHATASE 95 U/L (40-136); BILIRUBIN,TOTAL 0.5 MG/DL (0.1-1.0); BUN/CREATININE RATIO 21; CALCIUM 8.9 MG/DL (8.5-10.1); CHLORIDE 104 MMOL/L (98-107); CREATININE SERUM 3.84 MG/DL (0.60-1.30); GFR ESTIMATED 16; GLUCOSE 190 MG/DL (70-105); POTASSIUM 5.1 MMOL/L (3.6-5.0); SODIUM 126 MMOL/L (135-145); TOTAL PROTEIN 7.9 GM/DL (6.4-8.2)
[2019-06-21 00:45] LABS: CARBON DIOXIDE 7 MMOL/L (21-32)
[2019-06-21 00:47] LABS: ABG OXYGEN SATURATION 97 % (94-100); ABG PCO2 23 MMHG (35-45); ABG PO2 104 MMHG (79-93)
[2019-06-21 00:56] LABS: ALLENS TEST POSITIVE; INSPIRED O2 ROOM AIR; VENTILATOR NO
[2019-06-21 00:57] LABS: ABG PH 7.06 (7.37-7.43); PATIENT TEMP 37.3
[2019-06-21] MEDS ORDERED: AZITHROMYCIN INJECTION 500 MG in NS (IVPB) 250 ML IV ONE (01:30)
[2019-06-21] MEDS ORDERED: AZIT250T12 PO (02:08)
[2019-06-21] MEDS ORDERED: CEFD300C3 PO (02:08)
[2019-06-21 02:17] LABS: LYMPHOCYTES % (MANUAL) 7 %; METAMYELOCYTES % 1 %; MONOCYTES % (MANUAL) 5 %; REACTIVE LYMPHOCYTES 1 %
[2019-06-21 02:18] LABS: NEUTROPHILS % (MANUAL) 86 %
[2019-06-21 02:30] VITALS: BP 99/71
--- NOTE | 2019-06-21 05:20 | Diagnostic Imaging Report ---
INDICATION: Confusion and shortness of air COMPARISON: 08/15/2017 FINDINGS: Single frontal view of the chest demonstrates normal heart size and pulmonary vascularity. The lungs are well aerated and clear. Background COPD changes are noted. No large pleural effusion or pneumothorax is seen. The visualized osseous structures show no acute abnormalities. IMPRESSION: 1. No acute cardiopulmonary process. Dictated by: Dictated on workstation # [id number]
--- NOTE | 2019-06-21 06:57 | Diagnostic Imaging Report ---
PROCEDURE: CT abdomen and pelvis without contrast. TECHNIQUE: Multiple contiguous axial images were obtained through the abdomen and pelvis without the use of intravenous contrast. Auto Exposure Controls were utilized during the CT exam to meet ALARA standards for radiation dose reduction. INDICATION: Increased confusion. Dizziness. Shortness of air. History of previous colon resections. COMPARISON: CT chest dated 08/15/2017, CT abdomen dated 10/10/2011 FINDINGS: Included portions of lung bases again show background COPD changes with probable partially visualized atelectasis in the right lower lobe. CT ABDOMEN: Patient is status post previous partial colectomy. Ostomy site is noted within the right lower abdominal quadrant. Normal urinary bladder cannot be adequately identified. Patient appears to be status post diverting ileostomy. There are a few prominent loops of small bowel within the lower pelvis. Note is made however of adjacent surgical suture material. Remainder of the small bowel loops are nondistended. Left kidney is surgically absent. Multiple nonobstructive right renal calculi are identified. There is mild right-sided hydronephrosis. Hypodense right renal cysts are also present. No calculi are seen along the visualized course of the right ureter. Left adrenal gland is not well visualized. There is nodular hypodensity within the expected location of the left adrenal gland that measures 1.5 cm and could be on the basis of an adenoma. Right adrenal gland has a normal appearance. Pancreas, spleen, and liver have an unremarkable noncontrast CT appearance. There is no loculated fluid collection, free fluid, nor free air within the abdomen. No abnormal mesenteric or respiratory adenopathy is seen. There is moderate diffuse scattered calcified aortic and arterial atherosclerosis. Osseous structures show no acute abnormalities. CT PELVIS: Again, patient is status post previous cystectomy. There is no loculated fluid collection, free fluid, nor free air within the pelvis. No abnormal adenopathy is seen. Osseous structures show no acute abnormalities. IMPRESSION: 1. Status post previous left nephrectomy and cystectomy. 2. Status post previous diverting ileal conduit creation on the right. 3. Multiple nonobstructive right renal calculi. 4. Mild right-sided hydronephrosis. No calculi are seen along the visualized course of the right ureter. Findings could be on the basis of underlying stenosis at the ilio anastomotic site. 5. Few prominent loops of small bowel within the pelvis. These findings may relate to previous partial resection. If there is concern for obstruction, small bowel follow-through may be of benefit. 6. Left adrenal gland is not well visualized. There is hypodense nodular lesion within the expected location of the left adrenal gland, which may be on the basis of small adenoma. 6 month follow-up could be performed to ensure stability. Dictated by: Dictated on workstation # [id number]
== END 2019-06-21 02:32 | disposition home or self-care (01) ==
LOC: EDUNIT# 23:37 → ER 23:38
DX: E16.2 Hypoglycemia, unspecified (principal); J18.9 Pneumonia, unspecified organism; J44.9 Chronic obstructive pulmonary disease, unspecified; F17.210 Nicotine dependence, cigarettes, uncomplicated; Z85.828 Personal history of other malignant neoplasm of skin; Z85.46 Personal history of malignant neoplasm of prostate; Z85.51 Personal history of malignant neoplasm of bladder; Z79.52 Long term (current) use of systemic steroids; Z90.5 Acquired absence of kidney
CPT/HCPCS: 36415; 71045; 74176; 80053; 82805; 82962; 83605; 84484; 85007; 85027; 85610; 85730; 87040; 93005; 94640